=== PATIENT | female | born 1960 | race Hispanic/Latino ===

== ENCOUNTER 2017-09-23 17:29 | Inpatient (IN) | payer MEDICAID, OTHER ==
--- NOTE | 2017-09-23 18:48 | ED PDOC ---
Arrival/HPI - General Chief Complaint: Psychiatric Evaluation Time Seen by Provider: 09/23/17 18:13 Historian: Patient - History of Present Illness Narrative History of Present Illness (Text): 09/23/17 18:47 A 56 year old female presents to the emergency department for evaluation of suicidal ideation. Patient reports she ran out of her Seroquel medications, Psychiatrist won't refill prescriptions, and advised patient to come to the emergency department for psych evaluation. Patient denies hurting herself in the past. Denies any hallucinations, homicidal ideation. Patient denies any chest pain, shortness of breath, dysuria, abdominal pain or any other complaints at this time. Psychiatrist: Dr. Parsons Medications: Seroquel, Lorazepam Symptom Onset: Sudden Symptom Course: Unchanged Activities at Onset: Rest Context: Home Past Medical History - Provider Review Nursing Documentation Reviewed: Yes - Infectious Disease Hx of Infectious Diseases: None - Cardiac Hx Cardiac Disorders: Yes Hx Angina: No Hx Cardiac Arrhythmia: No Hx Circulatory Problems: No Hx Congestive Heart Failure: No Hx Heart Murmur: No Hx Heart Transplant: No Hx Hypertension: Yes Hx Internal Defibrillator: No Hx Mitral Valve Prolapse: No Hx Pacemaker: No Hx Peripheral Edema: No Hx Peripheral Vascular Disease: No - Pulmonary Hx Respiratory Disorders: No - Neurological Hx Neurological Disorder: No - HEENT Hx HEENT Disorder: No - Renal Hx Renal Disorder: No - Endocrine/Metabolic Hx Endocrine Disorders: No - Hematological/Oncological Hx Blood Disorders: No - Integumentary Hx Dermatological Disorder: No - Musculoskeletal/Rheumatological Hx Musculoskeletal Disorders: No Hx Falls: No - Gastrointestinal Hx Gastrointestinal Disorders: No - Genitourinary/Gynecological Hx Genitourinary Disorders: No Hx Reproductive Disorders: No - Psychiatric Hx Psychophysiologic Disorder: Yes Hx Anxiety: Yes Hx Bipolar Disorder: No Hx Depression: Yes Hx Emotional Abuse: No Hx Hallucinations: No Hx Panic Disorder: No Hx Post Traumatic Stress Disorder: No Hx Psychosis: No Hx Physical Abuse: No Hx Schizophrenia: No Hx Sexual Abuse: No Hx Substance Use: No - Surgical History Hx Amputation: No Hx Appendectomy: No Hx Cardiac Catheterization: No Hx Cholecystectomy: No Hx Coronary Stent: No Hx Gastric Bypass Surgery: No Hx Hysterectomy: No Hx Joint Replacement: No Hx Kidney Transplant: No Hx Liver Transplant: No Hx Mastectomy: No Hx Musculoskeletal Surgery: No Hx Open Heart Surgery: No Hx Orthopedic Surgery: No Hx Splenectomy: No Hx Valve Replacement: No Other/Comment: cervical spine tumor removal - Anesthesia Hx Anesthesia: Yes Hx Anesthesia Reactions: No Hx Malignant Hyperthermia: No - Suicidal Assessment Feels Threatened In Home Enviroment: No Family/Social History - Physician Review Nursing Documentation Reviewed: Yes Family/Social History: No Known Family HX Smoking Status: Heavy Smoker > 10 Cigarettes Daily Hx Alcohol Use: No Hx Substance Use: No Hx Substance Use Treatment: No Allergies/Home Meds Allergies/Adverse Reactions: Allergies No Known Allergies Allergy (Verified 10/12/13 04:48) Home Medications: Home Meds Medication Instructions Recorded Confirmed LORazepam [Ativan] 1 tab PO TID 09/23/17 09/23/17 QUEtiapine [SEROquel] 600 mg PO DAILY 09/23/17 09/23/17 Zaleplon [Sonata] 1 tab PO DAILY 09/23/17 09/23/17 Review of Systems - Physician Review All systems were reviewed & negative as marked: Yes - Review of Systems Respiratory: absent: SOB Cardiovascular: absent: Chest Pain Gastrointestinal: absent: Abdominal Pain Genitourinary Female: absent: Dysuria Psychiatric: Suicidal Ideation. absent: Other (hallucinations, homicidal ideation) Physical Exam Vital Signs Reviewed: Yes Vital Signs Temp Pulse Resp Pulse Ox 09/23/17 18:01 98.6 F 97 H 18 98 Temperature: Afebrile Blood Pressure: Normal Pulse: Regular Respiratory Rate: Normal Appearance: Positive for: Well-Appearing, Non-Toxic, Comfortable Pain Distress: None Mental Status: Positive for: Alert and Oriented X 3 - Systems Exam Head: Present: Atraumatic, Normocephalic Pupils: Present: PERRL Extroacular Muscles: Present: EOMI Conjunctiva: Present: Normal Mouth: Present: Moist Mucous Membranes Neck: Present: Normal Range of Motion Respiratory/Chest: Present: Clear to Auscultation, Good Air Exchange. No: Respiratory Distress, Accessory Muscle Use Cardiovascular: Present: Regular Rate and Rhythm, Normal S1, S2. No: Murmurs Abdomen: No: Tenderness, Distention, Peritoneal Signs Back: Present: Normal Inspection Upper Extremity: Present: Normal Inspection. No: Cyanosis, Edema Lower Extremity: Present: Normal Inspection. No: Edema Neurological: Present: GCS=15, CN II-XII Intact, Speech Normal Skin: Present: Warm, Dry, Normal Color. No: Rashes Psychiatric: Present: Alert, Oriented x 3, Normal Concentration, Anxious Medical Decision Making ED Course and Treatment: 09/23/17 18:45 Impression: A 56 year old female with suicidal ideation. Plan: -- EKG -- Chest X-ray -- labs -- Urinalysis -- Reassess and disposition Prior Visits: Notes and results from previous visits were reviewed. Patient was last seen in the emergency department on 10/12/13 for depression. Progress Notes: 09/23/17 19:04 Cxray negative. EKG shows NSR at 81bpm with RAD and non-specific ST changes. 09/23/17 20:46 Labs reviewed. Accepted by psych - Lab Interpretations Lab Results: 09/23/17 18:51 09/23/17 18:51 Lab Results 09/23/17 19:15: Urine Opiates Screen Negative, Urine Methadone Screen Negative, Ur Barbiturates Screen Negative, Ur Phencyclidine Scrn Negative, Ur Amphetamines Screen Negative, U Benzodiazepines Scrn Positive, U Oth Cocaine Metabols Negative, U Cannabinoids Screen Negative 09/23/17 19:14: Urine Color Yellow, Urine Appearance Sl cloudy, Urine pH 6.0, Ur Specific [place] >= 1.030, Urine Protein 30 H, Urine Glucose (UA) Negative, Urine Ketones Negative, Urine Blood Moderate H, Urine Nitrate Negative, Urine Bilirubin Negative, Urine Urobilinogen 0.2, Ur Leukocyte Esterase Negative, Urine RBC 15 - 20, Urine WBC 0 - 2, Ur Epithelial Cells 1 - 3, Urine Bacteria Trace, Hyaline Casts 0 - 2 09/23/17 18:51: Alcohol, Quantitative < 10 09/23/17 18:51: Salicylates < 1 L, Acetaminophen < 10.0 L 09/23/17 18:51: Sodium 144, Potassium 4.1, Chloride 106, Carbon Dioxide 26, Anion Gap 16, BUN 17, Creatinine 0.7, Est GFR ( Amer) > 60, Est GFR (Non- Af Amer) > 60, Random Glucose 104, Calcium 9.1, Magnesium 2.1, Total Bilirubin < 0.1 L, AST 21, ALT 17, Alkaline Phosphatase 70, Total Protein 6.9, Albumin 3.8 , Globulin 3.0, Albumin/Globulin Ratio 1.3 09/23/17 18:51: WBC 11.2 H, RBC 3.88, Hgb 13.1, Hct 37.8, MCV 97.4, MCH 33.8, MCHC 34.7, RDW 12.8, Plt Count 311, MPV 9.6, Gran % 76.0 H, Lymph % (Auto) 14.7 L, Lamb % (Auto) 8.7 H, Eos % (Auto) 0.4 L, Baso % (Auto) 0.2, Gran # 8.52 H, Lymph # (Auto) 1.7, Lamb # (Auto) 1.0 H, Eos # (Auto) 0.0, Baso # (Auto) 0.02 I have reviewed the lab results: Yes - RAD Interpretation Radiology Orders: 09/23/17 18:41 CHEST PORTABLE [RAD] Stat - EKG Interpretation Interpreted by ED Physician: Yes Type: 12 lead EKG - Medication Orders Current Medication Orders: Discontinued Medications Nicotine (Nicoderm Cq) 1 patch TD STAT STA Stop: 09/23/17 18:46 Last Admin: 09/23/17 19:03 Dose: 1 patch MAR Transdermal Patch Site Document 09/23/17 19:03 RENATE (Rec: 09/23/17 19:03 RENATE [id number]) Transdermal Patch Site Transdermal Patch Site Left Outer Upper Arm - Scribe Statement The provider has reviewed the documentation as recorded by the Azeem Holden Provider Scribe Attestation: All medical record entries made by the Scribe were at my direction and personally dictated by me. I have reviewed the chart and agree that the record accurately reflects my personal performance of the history, physical exam, medical decision making, and the department course for this patient. I have also personally directed, reviewed, and agree with the discharge instructions and disposition. Disposition/Present on Arrival - Present on Arrival Any Indicators Present on Arrival: No History of DVT/PE: No History of Uncontrolled Diabetes: No Urinary Catheter: No History of Decub. Ulcer: No History Surgical Site Infection Following: None - Disposition Have Diagnosis and Disposition been Completed?: Yes Diagnosis: Bipolar 1 disorder, Hematuria Disposition: HOSPITALIZED Disposition Time: 20:47 Patient Plan: Admission Condition: FAIR Forms: [employer] (Urdu)
[2017-09-23 19:02] LABS: BASO # 0.02 K/mm3 (0.0-2.0); BASO % 0.2 % (0.0-3.0); EOS % 0.4 % (1.5-5.0); GRAN # 8.52 (1.4-6.5); HEMOGLOBIN 13.1 g/dL (12.0-16.0); LYMPH # 1.7 (1.2-3.4); LYMPH % 14.7 % (22.0-35.0); MEAN CELL VOLUME 97.4 fl (80.0-105.0); MEAN CORPUSCULAR HEMOGLOBIN 33.8 pg (25.0-35.0); MEAN CORPUSCULAR HGB CONC 34.7 g/dl (31.0-37.0); MEAN PLATELET VOLUME 9.6 fl (7.0-11.0); MONO % 8.7 % (1.0-6.0); RBC 3.88 10^6/uL (3.5-6.1); RED CELL DISTRIBUTION WIDTH 12.8 % (11.5-14.5); WHITE BLOOD COUNT 11.2 10^3/ul (4.5-11.0)
[2017-09-23 19:13] LABS: ACETAMINOPHEN < 10.0 ug/ml (10.0-20.0); SALICYLATE < 1 mg/dL (2.0-20.0)
[2017-09-23 19:16] LABS: ALB/GLOB RATIO 1.3 (1.1-1.8); ALBUMIN 3.8 g/dL (3.0-4.8); ALT/SGPT 17 U/L (7-56); AST/SGOT 21 U/L (14-36); BLOOD UREA NITROGEN 17 mg/dL (7-21); CALCIUM 9.1 mg/dL (8.4-10.5); GFR NON-AFRICAN AMERICAN > 60
[2017-09-23 19:20] LABS: URINE BILIRUBIN NEGATIVE (NEGATIVE); URINE BLOOD MODERATE (NEGATIVE); URINE GLUCOSE (UA) NEGATIVE (NEGATIVE); URINE LEUKOCYTE ESTERASE NEGATIVE Leu/uL (NEGATIVE); URINE PROTEIN 30 mg/dL (<30 mg/dL); URINE UROBILINOGEN 0.2 E.U./dL (<1 E.U./dL)
[2017-09-23 19:27] LABS: URINE APPEARANCE SL CLOUDY (CLEAR); URINE COLOR YELLOW (YELLOW); URINE RBC 15 - 20 /hpf (0-2)
[2017-09-23 19:28] LABS: URINE BACTERIA TRACE (NEG); URINE HYALINE CAST 0 - 2 /hpf; URINE WBC 0 - 2 /hpf (0-6)
[2017-09-23 20:33] LABS: BARBITURATES, UR NEGATIVE (NEGATIVE); BENZODIAZEPINES, UR POSITIVE (NEGATIVE); OPIATES, UR NEGATIVE (NEGATIVE); PHENCYCLIDINE, UR NEGATIVE (NEGATIVE)
[2017-09-24] MEDS ORDERED: Magnesium Hydroxide Susp 30 ml UD PO PRN (00:30)
[2017-09-24 00:51] VITALS: BMI 21.4
[2017-09-24 00:58] VITALS: O2SAT 97
--- NOTE | 2017-09-24 02:20 | PCM.BM ---
Treatment Plan Problems - Problems identified on initial assessmt Anxiety Date Initiated: 09/23/17 Time Initiated: 22:15 Assessment reference: NA Status: Active Priority: 1
--- NOTE | 2017-09-24 02:29 | PCM.BM ---
<José Osman - Last Filed: 09/24/17 02:24> Treatment Plan Problems - Problems identified on initial assessmt Anxiety Date Initiated: 09/23/17 Time Initiated: 22:15 Assessment reference: NA Status: Active Priority: 1 Ineffective Coping Date Initiated: 09/23/17 Time Initiated: 22:15 Assessment reference: NA Status: Active Priority: 2 Ineffective Impulse Control Date Initiated: 09/23/17 Time Initiated: 22:15 Assessment reference: NA Status: Active Priority: 3 Altered Sleep Patterns Date Initiated: 09/23/17 Time Initiated: 22:15 Assessment reference: NA Status: Active Priority: 4 Treatment assets and liabiliti Patient Assests: cooperative, insightful, motivated, good support system, cognitively intact, good interpersonal skills Patient Liabilities: substance abuse, medical problems - Milieu Protocol Maintain good personal hygiene: daily Encourage regular showers, every shift Remind patient to perform daily oral care, every shift Assist patient to perform ADL's Maintain personal safety: every shift Educate patient to report safety concerns to staff, every shift Monitor environment for contraband/sharps Medication safety: Monitor for expected outcome, potential side effects: every shift, Assess barriers to learning: every shift, Assess readiness for medication education: every shift Family Contact - Goals for Treatment Patient goals for treatment: to stop taking lorazepam Discharge/Continuing Care - Education Needs Education Needs: Patient Medication, Patient Diagnosis/Disease Process, Patient Coping Skills, Patient Community resources, Patient Nutrition, Patient Health Practices/Safety, Patient Aftercare Safety Plan - Discharge Discharge Criteria: Tolerates medication w/o severe side effects, Normal sleep pattern <Shira Perdomo - Last Filed: 09/24/17 11:59> - Diagnosis (1) Mood disorder Status: Acute Interventions: 09/24/17 09:06 Psychoeducation Psychopharmacology/adjustment of medications as needed/ monitoring possible side effects Evaluate pt on daily basis Compliance with medications and follow up appointments Suicide and homicide risk assessment and prevention Relapse prevention Reduction of symptoms Improve functional status Family involvement As outpatient: cognitive behavioral therapy (2) Anxiolytic dependence Status: Acute Interventions: 09/24/17 09:06 Monitoring withdrawal symptoms Medical detoxification Pharmacotherapy for alcohol/benzos/opioid dependence Maintaining sobriety Relapse prevention Possible rehabilitation Motivational interviewing 12-step programs: AA meetings <Tod,Taryn - Last Filed: 09/25/17 12:39>
[2017-09-24 07:59] LABS: GLUCOSE,FASTING 98 mg/dL (65-110); HDL CHOLESTEROL 68 mg/dL (29-60)
[2017-09-24 08:11] LABS: LDL CHOLESTEROL 84 mg/dL (0-129)
--- NOTE | 2017-09-24 09:05 | RAD ---
HISTORY: psych COMPARISON: No prior. FINDINGS: LUNGS: No active pulmonary disease. PLEURA: No significant pleural effusion identified, no pneumothorax apparent. CARDIOVASCULAR: Normal. OSSEOUS STRUCTURES: No significant abnormalities. VISUALIZED UPPER ABDOMEN: Normal. OTHER FINDINGS: None. IMPRESSION: No acute cardiopulmonary disease appreciated.
--- NOTE | 2017-09-24 10:20 | CARD ---
APPROVED REPORT EKG Measurement Heart [id number] <Conclusion> Normal sinus rhythm Possible Left atrial enlargement Rightward axis Prolonged QTc
--- NOTE | 2017-09-24 11:58 | PCM.PSYCH ---
Initial Psychiatric Evaluation - Initial Psychiatric Evaluation Type of Admission: Voluntary Legal Status: Capacity (patient has capacity to sign consent for treatment) Chief Complaint (in patient's own words): "now I need to find another psychiatrist, will not take me back, I was misusing medications..." Patient's Reaction to Hospitalization: pt was admitted for evaluation of depressive symptoms, pt was misusing and abusing seroquel and benzos History of Present Illness and Precipitating Events: Shortly pt is a 56yo female with long h/o mental illness, one previous psych admission to this facility under 's service, pt was referred by psychiatrist Dr. Benson for evaluation of depressive symptoms, feeling of hopelessness and helplessness, pt was self medicating with the psychotropic meds, was misusing and abusing them, which led pt to this hospitalization, pt's psychiatrist will not take her back, pt's pharmacy refused to fill meds because of frequent losing meds. Pt required further evaluation and stabilization in psychiatric inpatient unit, pt failed outpatient setting, now is in danger to self. pt was seen in her room, pt presented to be older than her chronological age, poor hygiene, fair ADLs. pt refused to be evaluated in other room claiming that she does not feel well. pt reported she was on multiple SSRI but "I did not like the way it makes me feel", pt said that currently she is only on seroquel 1000mg daily and Ativan 2 mgs daytime 1mg HS and Sonata 10-20 mgs HS - Dr. Yates, pt said "I know that at times I am taking more, but I am depressed hopeless, helpless and cannot function, that is why I took more", pt was advised to take meds as prescribe, pt also was educated about dangerousness of such behavior, pt verbalized understanding. pt said at times she feels that she wants to be . Pt denied intent or plan to kill self or others. pt said at times she feels anxious, but denied h/o abuse, denied panic attacks. pt reported to have poor appetite and sleep. pt denied v/a/t hallucinations, denied paranoid ideation, but appeared oddly related. She reported difficulties grieving loss of sister a year ago. She reported feeling depressed taking care of her 88 y/o mother. Pt reported she lives w/ her mother. Medical h/o: pt reported being disabled due to a spinal surgery 12 years ago. 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 She denied any other medical issues/ medications. pt has difficulties to ambulate, said she cannot stand for long, will call for PT. Past psych h/o: pt reported past psych admission in 2013 to for depression. Pt denied substance use, however admitted to abusing her medications stating "I take more meds than I should at a time." pt smokes 1/2 pack a day, counseling provided, nicotine patch offered. Family h/o: pt denied family h/o mental illness. 09/23/17 18:51 09/23/17 18:51 Lab Results 09/24/17 07:00: TSH 3rd Generation 1.22 09/24/17 07:00: Fasting Glucose 98, Triglycerides 63, Cholesterol 175, LDL Cholesterol Direct 84, HDL Cholesterol 68 H 09/23/17 19:15: Urine Opiates Screen Negative, Urine Methadone Screen Negative, Ur Barbiturates Screen Negative, Ur Phencyclidine Scrn Negative, Ur Amphetamines Screen Negative, U Benzodiazepines Scrn Positive, U Oth Cocaine Metabols Negative, U Cannabinoids Screen Negative 09/23/17 19:14: Urine Color Yellow, Urine Appearance Sl cloudy, Urine pH 6.0, Ur Specific [place] >= 1.030, Urine Protein 30 H, Urine Glucose (UA) Negative, Urine Ketones Negative, Urine Blood Moderate H, Urine Nitrate Negative, Urine Bilirubin Negative, Urine Urobilinogen 0.2, Ur Leukocyte Esterase Negative, Urine RBC 15 - 20, Urine WBC 0 - 2, Ur Epithelial Cells 1 - 3, Urine Bacteria Trace, Hyaline Casts 0 - 2 09/23/17 18:51: Alcohol, Quantitative < 10 09/23/17 18:51: Salicylates < 1 L, Acetaminophen < 10.0 L 09/23/17 18:51: Sodium 144, Potassium 4.1, Chloride 106, Carbon Dioxide 26, Anion Gap 16, BUN 17, Creatinine 0.7, Est GFR ( Amer) > 60, Est GFR (Non- Af Amer) > 60, Random Glucose 104, Calcium 9.1, Magnesium 2.1, Total Bilirubin < 0.1 L, AST 21, ALT 17, Alkaline Phosphatase 70, Total Protein 6.9, Albumin 3.8 , Globulin 3.0, Albumin/Globulin Ratio 1.3 09/23/17 18:51: WBC 11.2 H, RBC 3.88, Hgb 13.1, Hct 37.8, MCV 97.4, MCH 33.8, MCHC 34.7, RDW 12.8, Plt Count 311, MPV 9.6, Gran % 76.0 H, Lymph % (Auto) 14.7 L, [place] % (Auto) 8.7 H, Eos % (Auto) 0.4 L, Baso % (Auto) 0.2, Gran # 8.52 H, Lymph # (Auto) 1.7, [place] # (Auto) 1.0 H, Eos # (Auto) 0.0, Baso # (Auto) 0.02 Vital Signs Temp Pulse Resp BP Pulse Ox 09/24/17 07:31 98.4 F 68 20 98/67 L 09/23/17 22:15 97.8 F 85 18 104/66 97 09/23/17 22:00 98.7 F 78 18 110/70 99 09/23/17 21:55 98.7 F 78 18 110/70 99 09/23/17 18:01 98.6 F 97 H 18 98 Current Medications: Active Medications Generic Name Dose Route Start Last Admin Trade Name Freq PRN Reason Stop Dose Admin Acetaminophen 650 mg 09/24/17 00:30 Tylenol 325mg Tab PO Q6H PRN Pain, moderate (4-7) Al Hydrox/Mg Hydrox/Simethicone 30 ml 09/24/17 00:30 Maalox Plus 30 Ml PO DAILY PRN Indigestion / Heartburn Lorazepam 2 mg 09/23/17 23:54 09/24/17 00:06 Ativan PO 2 mg AMHS KENDRICK Administration Protocol Magnesium Hydroxide 30 ml 09/24/17 00:30 Milk Of Magnesia PO DAILY PRN Constipation Quetiapine Fumarate 200 mg 09/23/17 23:45 09/24/17 00:07 Seroquel PO 200 mg HS KENDRICK Administration Protocol Quetiapine Fumarate 400 mg 09/24/17 08:00 Seroquel PO BID KENDRICK Protocol Zaleplon 10 mg 09/23/17 23:57 09/24/17 00:07 Sonata PO 10 mg HS PRN Administration Insomnia Past Psychiatric History - Past Psychiatric History Previous Treatment History: Inpatient Prior Professional Help: see HPI Prior Psychiatric Treatment: see HPI At what hospital: see HPI Duration: see HPI Nature of Treatment: see HPI Explanation of prior treatment: see HPI History of Abuse: see HPI History of ETOH/Drug Use: see HPI History of Family Illness: see HPI Pertinent Medical Hx (Current Medical&Sleep Prob, Allergies): Allergies Allergy/AdvReac Type Severity Reaction Status Date / Time No Known Allergies Allergy Verified 09/24/17 00:50 LORazepam [Ativan] 1 tab PO TID 09/23/17 QUEtiapine [SEROquel] 1,000 mg PO DAILY 09/23/17 RX: Zaleplon [Sonata] 1 tab PO DAILY 09/23/17 Review of Systems - Review of Systems Systems not reviewed;Unavailable: Acuity of Condition - EENT Eyes: As Per HPI Ears: As Per HPI Nose/Mouth/Throat: As Per HPI - Breasts Breasts: As Per HPI - Cardiovascular Cardiovascular: As Per HPI - Respiratory Respiratory: As Per HPI - Gastrointestinal Gastrointestinal: As Per HPI - Genitourinary Genitourinary: As Per HPI - Reproductive: Female Reproductive:Female: As Per HPI - Menstruation Menstruation: As Per HPI - Musculoskeletal Musculoskeletal: As Par HPI - Integumentary Integumentary: As Per HPI - Neurological Neurological: As Per HPI - Psychiatric Psychiatric: As Per HPI - Endocrine Endocrine: As Per HPI - Hematologic/Lymphatic Hematologic: As Per HPI Mental Status Examination - Personal Presentation Personal Presentation: Looks older than stated age - Affect Affect: Flat - Motor Activity Motor Activity: Psychomotor Retardation - Reliability in Providing Information Reliability in Providing Information: Fair - Speech Speech: Organized - Mood Mood: Depressed - Formal Thought Process Formal Thought Process: No Impairment, Other (but oddly related) - Obsessions/Compulsions Obsessions: None Compulsions: None - Cognitive Functions Orientation: Person, Place Sensorium: Alert Attention/Concentration: Easily distracted Abstract Thinking: [place] Estimate of Intelligence: Average Judgement: Intact, as evidence by: Insight regarding need for hospitalization - Risk Risk: Falls, Self-mutilation, Diminished functioning - Strength & Assets Inventory Strength & Assets Inventory: Family support, Cooperative - Limitations Limitations: Other (pt is misusing meds) DSM 5 DX - DSM 5 DSM 5 Diagnosis: r/o MDD r/o benzodiazepines abuse and misuse - Recommended/Plan of Treatment Treatment Recommendations and Plan of Treatment: Milieu/structure/supportive therapy Medical consult will be considered SW consultation for discharge plan and social issues Med management LORazepam will be continued, 2mg po bid for anxiety, possible change to klonopin QUEtiapine [SEROquel] 1,000 mg PO DAILY will be continued Sonata 10mg po hs for insomnia wellbutrin started 75mg po bid for depression Family involvement Follow up on labs Will monitor closely Pt was educated about risk/benefits and alternatives of medications, coping strategies (safety plan, suicide prevention), relapse prevention, importance of follow up with psychiatrist and therapist, stay away from drugs/alcohol/smoking Projected ELOS: 7days Prognosis: guarded Discharge Plan and Discharge Criteria: Pt will be not depressed or manic, will be more hopeful, will be not psychotic or anxious, will be not having thoughts of harming self or others, will be tolerating medications well, will not have major side effects, will be able to function, will not pose threat to self or others. - Smoking Cessation Smoking Cessation Initiated: Yes
[2017-09-24 16:34] LABS: RAPID PLASMA REAGIN REACTIVE (NONREACTIVE)
--- NOTE | 2017-09-25 12:05 | PCM.PYCHPN ---
Psychiatric Progress Note - Psychiatric Progress Note Patient seen today, length of contact: 25 min Patient Chief Complaint: "better but tired" Problems Identified/Issues Discussed: I reviewed admission assessment. Patient is a 56yo female with long h/ o mental illness, one previous psych admission to this facility under 's service who was was referred by her psychiatrist Dr. Yates for evaluation of anxiety and depressive symptoms, including feelings of hopelessness and helplessness in context of misusing and abusing her psychotropic medications. Of note: Dr. Yates will not take her back, pt's pharmacy refused to fill meds because of too many early refills/lost medications. I reviewed recent notes and patient was interviewed at bedside this morning. Grooming is unkempt and she is oriented to month, year, location and circumstances. Patient is generally very disengaged during my questioning. Her responses are relevant to questioning however they are cursory. Meaningful dialogue about her functioning could not be further attempted during treatment team meeting this morning because patient refused to attend despite requests by two different staff members. At bedside patient was able to report to me that she is "feeling better but tired". Patient denies any new side effects, discomfort or pain. She denied hallucinations or paranoid thoughts. Patient doesn't appear to be responding to internal stimuli and doesn't appear to be in any physical discomfort. She subjectively reports improvement in anxiety symptoms. Staff reports indicate that she still has periods of anxiety but generally has been calm and cooperative on the unit She is visible and socializes appropriately on the unit. There were no behavioral issues overnight. Diagnostic Results: r/o MDD r/o benzodiazepines abuse and misuse Mental Status Examination - Cognitive Function Orientation: Person, Place Attention: Poor Concentration: Poor - Mood Mood: Depressed (better but tired) - Affect Affect: Flat - Speech Speech: Soft - Formal Thought Process Formal Thought Process: No Impairment, Other (but oddly related) - Suicidal Ideation Suicidal Ideation: No - Homicidal Ideation Homicidal Ideation: No Goal/Treatment Plan - Goal/Treatment Plan Progress Toward Problem(s) and Goals/Treatment Plan: * c/w current tx and plan * No new labs today thus far * Vitals reviewed and noted below: Selected Entries 09/24/17 09/24/17 09/24/17 07:31 14:33 16:00 Temperature 98.4 F 97.5 F L Pulse Rate 68 83 Respiratory 20 Rate Blood Pressure 98/67 L 103/61
[2017-09-25] MEDS: Alum-Mag Hydrox-Simethicone Susp (30 mL) PO PRN (14:22)
--- NOTE | 2017-09-26 09:55 | PCM.PYCHPN ---
Psychiatric Progress Note - Psychiatric Progress Note Patient seen today, length of contact: 25 min Patient Chief Complaint: "better but tired" Problems Identified/Issues Discussed: I reviewed assessment. Patient is a 56yo female with long h/o mental illness, one previous psych admission to this facility under 's service who was was referred by her psychiatrist Dr. Yates for evaluation of anxiety and depressive symptoms, including feelings of hopelessness and helplessness in context of misusing and abusing her psychotropic medications. Of note: Dr. Yates will not take her back, pt's pharmacy refused to fill meds because of too many early refills/lost medications. I reviewed recent notes. Patient was interviewed in the quiet room this morning because her roommates loud behavior was disturbing her. As a result she didnt sleep well last night and she is tired today. Requests that Seroquel dosing be switched from 400/400/200 to 400/200/400. Patient is more alert and communicative today. Oriented x3. Affect is calm and constricted. She feels like she is improving on the unit. Indicates that her emotions and anxiety are in better control. Patient is tolerating her medications and denies any side effects. She denies any discomfort or pain except for chronic back pain related to spinal surgery she had in the past. Her responses remain relevant to questioning and she denies any hallucinations or paranoid thoughts. Patient doesnt appear to be responding to internal stimuli She is visible and socializes appropriately on the unit. Attending groups. There were no behavioral issues overnight. Diagnostic Results: r/o MDD r/o benzodiazepines abuse and misuse Mental Status Examination - Cognitive Function Orientation: Person, Place, Situation Attention: WNL Concentration: Poor - Mood Mood: Depressed (better but tired) - Affect Affect: Flat - Speech Speech: Soft - Formal Thought Process Formal Thought Process: No Impairment, Other (but oddly related) - Suicidal Ideation Suicidal Ideation: No - Homicidal Ideation Homicidal Ideation: No Goal/Treatment Plan - Goal/Treatment Plan Progress Toward Problem(s) and Goals/Treatment Plan: * c/w current tx and plan * Seroquel dosing schedule changed from 400/400/200 to 400/200/400 on 09/26/17 * No new labs today thus far * Vitals reviewed and noted below: Selected Entries 09/26/17 07:20 Temperature 98.1 F Pulse Rate 67 Respiratory 20 Rate Blood Pressure 110/71
--- NOTE | 2017-09-27 09:50 | PCM.PYCHPN ---
Psychiatric Progress Note - Psychiatric Progress Note Patient seen today, length of contact: 25 min Patient Chief Complaint: "better" Problems Identified/Issues Discussed: I have reviewed assessment. Patient is a 56 yo female with long h/o mental illness, one previous psych admission to this facility under ' s service who was was referred by her psychiatrist Dr. Yates for evaluation of anxiety and depressive symptoms, including feelings of hopelessness and helplessness in context of misusing and abusing her psychotropic medications. Of note: Dr. Yates will not take her back, pt's pharmacy refused to fill meds because of too many early refills/lost medications. I reviewed recent notes. Patient was interviewed at bedside this morning. She remains oriented x3 and superficially cooperative with questioning. Indicates that she slept a little better last night and is tolerating switch of Seroquel dosing from 400/400/200 to 400/200/400. Affect remains calm and constricted. She feels like she is improving on the unit. Indicates that her emotions and anxiety are in better control. Patient is tolerating her medications and denies any side effects. She denies any discomfort or pain except for chronic back pain related to spinal surgery she had in the past. Her responses remain relevant to questioning and she denies any hallucinations or paranoid thoughts. Patient doesn't appear to be responding to internal stimuli. She is visible and socializes appropriately on the unit. Attending and participating in groups. Per staff she can still be intrusive but easily redirectable. There were no behavioral issues over the weekend thus far. Diagnostic Results: r/o MDD r/o benzodiazepines abuse and misuse Mental Status Examination - Cognitive Function Orientation: Person, Place, Situation Attention: WNL Concentration: Poor - Mood Mood: Depressed (better ) - Affect Affect: Constricted - Speech Speech: Soft - Formal Thought Process Formal Thought Process: No Impairment, Other (but oddly related) - Suicidal Ideation Suicidal Ideation: No - Homicidal Ideation Homicidal Ideation: No Goal/Treatment Plan - Goal/Treatment Plan Progress Toward Problem(s) and Goals/Treatment Plan: * c/w current tx and plan * Seroquel dosing schedule changed from 400/400/200 to 400/200/400 on 09/26/17 to help patient with sleep * No new labs this weekend thus far * Vitals reviewed and noted below: 09/26/17 09/26/17 09/27/17 07:20 16:00 06:53 Temperature 98.1 F 97.6 F Pulse Rate 67 84 64 Respiratory 20 19 Rate Blood Pressure 110/71 99/59 L 100/67
--- NOTE | 2017-09-28 15:32 | PCM.PYCHPN ---
Psychiatric Progress Note - Psychiatric Progress Note Patient seen today, length of contact: 25 min Patient Chief Complaint: "I need to be weaned off from benzos" Problems Identified/Issues Discussed: Suicide/ homicide prevention, past psychiatric h/o, current psychiatric symptoms , medical problems, risk/benefits and alternatives of medications, medications compliance, coping strategies, substance abuse h/o, relapse prevention, importance of follow up with psychiatrist and therapist, discharge plan. Medical Problems: see HPI Diagnostic Results: 09/23/17 18:51 09/23/17 18:51 Lab Results 09/24/17 07:00: RPR Titer 1:2 H, RPR Reactive H 09/24/17 07:00: TSH 3rd Generation 1.22 09/24/17 07:00: Fasting Glucose 98, Triglycerides 63, Cholesterol 175, LDL Cholesterol Direct 84, HDL Cholesterol 68 H 09/23/17 19:15: Urine Opiates Screen Negative, Urine Methadone Screen Negative, Ur Barbiturates Screen Negative, Ur Phencyclidine Scrn Negative, Ur Amphetamines Screen Negative, U Benzodiazepines Scrn Positive, U Oth Cocaine Metabols Negative, U Cannabinoids Screen Negative 09/23/17 19:14: Urine Color Yellow, Urine Appearance Sl cloudy, Urine pH 6.0, Ur Specific [place] >= 1.030, Urine Protein 30 H, Urine Glucose (UA) Negative, Urine Ketones Negative, Urine Blood Moderate H, Urine Nitrate Negative, Urine Bilirubin Negative, Urine Urobilinogen 0.2, Ur Leukocyte Esterase Negative, Urine RBC 15 - 20, Urine WBC 0 - 2, Ur Epithelial Cells 1 - 3, Urine Bacteria Trace, Hyaline Casts 0 - 2 09/23/17 18:51: Alcohol, Quantitative < 10 09/23/17 18:51: Salicylates < 1 L, Acetaminophen < 10.0 L 09/23/17 18:51: Sodium 144, Potassium 4.1, Chloride 106, Carbon Dioxide 26, Anion Gap 16, BUN 17, Creatinine 0.7, Est GFR ( Amer) > 60, Est GFR (Non- Af Amer) > 60, Random Glucose 104, Calcium 9.1, Magnesium 2.1, Total Bilirubin < 0.1 L, AST 21, ALT 17, Alkaline Phosphatase 70, Total Protein 6.9, Albumin 3.8 , Globulin 3.0, Albumin/Globulin Ratio 1.3 09/23/17 18:51: WBC 11.2 H, RBC 3.88, Hgb 13.1, Hct 37.8, MCV 97.4, MCH 33.8, MCHC 34.7, RDW 12.8, Plt Count 311, MPV 9.6, Gran % 76.0 H, Lymph % (Auto) 14.7 L, [place] % (Auto) 8.7 H, Eos % (Auto) 0.4 L, Baso % (Auto) 0.2, Gran # 8.52 H, Lymph # (Auto) 1.7, [place] # (Auto) 1.0 H, Eos # (Auto) 0.0, Baso # (Auto) 0.02 Vital Signs Temp Pulse Resp BP Pulse Ox 09/27/17 16:00 92 H 94/60 L 09/27/17 06:53 97.6 F 64 19 100/67 09/26/17 16:00 92 H 94/60 L 09/26/17 07:20 98.1 F 67 20 110/71 09/25/17 16:00 94 H 96/58 L 09/24/17 16:00 83 103/61 09/24/17 14:33 97.5 F L 09/24/17 07:31 98.4 F 68 20 98/67 L 09/23/17 22:15 97.8 F 85 18 104/66 97 09/23/17 22:00 98.7 F 78 18 110/70 99 09/23/17 21:55 98.7 F 78 18 110/70 99 09/23/17 18:01 98.6 F 97 H 18 98 DSM 5 Symptoms Update: Shortly pt is a 56yo female with long h/o mental illness, one previous psych admission to this facility under 's service, pt was referred by psychiatrist Dr. Benson for evaluation of depressive symptoms, feeling of hopelessness and helplessness, pt was self medicating with the psychotropic meds, was misusing and abusing them, which led pt to this hospitalization, pt's psychiatrist will not take her back, pt's pharmacy refused to fill meds because of frequent losing meds. Pt required further evaluation and stabilization in psychiatric inpatient unit, pt failed outpatient setting, now is in danger to self. pt was seen at the treatment team meeting room, pt presented to be older than her chronological age, poor hygiene, fair ADLs. pt has some positive changes to compare to when this screenplay writer met pt for the first time. pt reported to be depressed "just to be here", denied thoughts of harming self or others. pt reported to be anxious. pt was able to participate in meeting, but at the same time appeared to be restless, pt said "It is me, I am always like that", pt was advised to decrease dose of seroquel, bt pt said "I know my body, I want to continue". pt said that she wants to be weaned off from benzos. pt reported to have improved appetite, sleep still poor. pt denied v/a/t hallucinations, denied paranoid ideation, but appeared oddly related. She reported difficulties grieving loss of sister a year ago. She reported feeling depressed taking care of her 88 y/o mother. so far pt tolerates meds well, no side effects observed of reported. AIMS 0, no EPS> Impression DSM 5 Diagnosis: r/o MDD r/o benzodiazepines abuse and misuse Medication Change: Yes (ativan decreased, vistaril and benadryl increased) Medical Record Reviewed: Yes Consults ordered or reviewed: pt was seen by medical team in ED Mental Status Examination - Cognitive Function Orientation: Person, Place, Situation Attention: WNL Concentration: Poor Association: WNL Fund of Knowledge: WNL - Mood Mood: Depressed (better ) - Affect Affect: Constricted - Speech Speech: Appropriate, Soft - Formal Thought Process Formal Thought Process: No Impairment, Other (but oddly related) - Suicidal Ideation Suicidal Ideation: No - Homicidal Ideation Homicidal Ideation: No Goal/Treatment Plan - Goal/Treatment Plan Need for Continued Stay: Remain at risks for inpatient hospitalization, Severe depression anxiety, Discharge may exacerbated symptoms, Severe functional impairment Progress Toward Problem(s) and Goals/Treatment Plan: Milieu/structure/supportive therapy Medical consult will be considered SW consultation for discharge plan and social issues Med management LORazepam will be continued, 1mg po tid for anxiety, with the plan to wean it off QUEtiapine [SEROquel] 1,000 mg PO DAILY will be continued [place] 10mg po hs for insomnia wellbutrin started 75mg po bid for depression benadryl 50mg po hs for insomnia vistaril 50mg qid scheduled Family involvement Follow up on labs Will monitor closely Pt was educated about risk/benefits and alternatives of medications, coping strategies (safety plan, suicide prevention), relapse prevention, importance of follow up with psychiatrist and therapist, stay away from drugs/alcohol/smoking Estimated Date of D/C: 09/30/17
[2017-09-29] MEDS: buPROPion 150 mg/24 Hours XL Tab PO SCH (09:29)
--- NOTE | 2017-09-29 10:40 | PCM.PYCHPN ---
Psychiatric Progress Note - Psychiatric Progress Note Patient seen today, length of contact: 30min Patient Chief Complaint: "I feel better, I want to stay away from benzos" Problems Identified/Issues Discussed: Suicide/ homicide prevention, past psychiatric h/o, current psychiatric symptoms , medical problems, risk/benefits and alternatives of medications, medications compliance, coping strategies, substance abuse h/o, relapse prevention, importance of follow up with psychiatrist and therapist, discharge plan. Medical Problems: see HPI Diagnostic Results: 09/23/17 18:51 09/23/17 18:51 Lab Results 09/24/17 07:00: RPR Titer 1:2 H, RPR Reactive H 09/24/17 07:00: TSH 3rd Generation 1.22 09/24/17 07:00: Fasting Glucose 98, Triglycerides 63, Cholesterol 175, LDL Cholesterol Direct 84, HDL Cholesterol 68 H 09/23/17 19:15: Urine Opiates Screen Negative, Urine Methadone Screen Negative, Ur Barbiturates Screen Negative, Ur Phencyclidine Scrn Negative, Ur Amphetamines Screen Negative, U Benzodiazepines Scrn Positive, U Oth Cocaine Metabols Negative, U Cannabinoids Screen Negative 09/23/17 19:14: Urine Color Yellow, Urine Appearance Sl cloudy, Urine pH 6.0, Ur Specific [place] >= 1.030, Urine Protein 30 H, Urine Glucose (UA) Negative, Urine Ketones Negative, Urine Blood Moderate H, Urine Nitrate Negative, Urine Bilirubin Negative, Urine Urobilinogen 0.2, Ur Leukocyte Esterase Negative, Urine RBC 15 - 20, Urine WBC 0 - 2, Ur Epithelial Cells 1 - 3, Urine Bacteria Trace, Hyaline Casts 0 - 2 09/23/17 18:51: Alcohol, Quantitative < 10 09/23/17 18:51: Salicylates < 1 L, Acetaminophen < 10.0 L 09/23/17 18:51: Sodium 144, Potassium 4.1, Chloride 106, Carbon Dioxide 26, Anion Gap 16, BUN 17, Creatinine 0.7, Est GFR ( Amer) > 60, Est GFR (Non- Af Amer) > 60, Random Glucose 104, Calcium 9.1, Magnesium 2.1, Total Bilirubin < 0.1 L, AST 21, ALT 17, Alkaline Phosphatase 70, Total Protein 6.9, Albumin 3.8 , Globulin 3.0, Albumin/Globulin Ratio 1.3 09/23/17 18:51: WBC 11.2 H, RBC 3.88, Hgb 13.1, Hct 37.8, MCV 97.4, MCH 33.8, MCHC 34.7, RDW 12.8, Plt Count 311, MPV 9.6, Gran % 76.0 H, Lymph % (Auto) 14.7 L, [place] % (Auto) 8.7 H, Eos % (Auto) 0.4 L, Baso % (Auto) 0.2, Gran # 8.52 H, Lymph # (Auto) 1.7, [place] # (Auto) 1.0 H, Eos # (Auto) 0.0, Baso # (Auto) 0.02 Vital Signs Temp Pulse Resp BP Pulse Ox 09/27/17 16:00 92 H 94/60 L 09/27/17 06:53 97.6 F 64 19 100/67 09/26/17 16:00 92 H 94/60 L 09/26/17 07:20 98.1 F 67 20 110/71 09/25/17 16:00 94 H 96/58 L 09/24/17 16:00 83 103/61 09/24/17 14:33 97.5 F L 09/24/17 07:31 98.4 F 68 20 98/67 L 09/23/17 22:15 97.8 F 85 18 104/66 97 09/23/17 22:00 98.7 F 78 18 110/70 99 09/23/17 21:55 98.7 F 78 18 110/70 99 09/23/17 18:01 98.6 F 97 H 18 98 DSM 5 Symptoms Update: Shortly pt is a 56yo female with long h/o mental illness, one previous psych admission to this facility under 's service, pt was referred by psychiatrist Dr. Benson for evaluation of depressive symptoms, feeling of hopelessness and helplessness, pt was self medicating with the psychotropic meds, was misusing and abusing them, which led pt to this hospitalization, pt's psychiatrist will not take her back, pt's pharmacy refused to fill meds because of frequent losing meds. Pt required further evaluation and stabilization in psychiatric inpatient unit, pt failed outpatient setting, now is in danger to self. pt was seen next to the nursing station, pt presented well rested, wash her hair , with much improved personal hygiene, fair ADLs. pt has some positive changes to compare to when this sports writer met pt for the first time. pt reported to be less depressed, pt tolerated decrease dose of Ativan well, no signs of withdrawals. pt reported future oriented plans "to stay away from benzos and "take care of my mother, she is waiting for me to come back home"denied v/a/t hallucinations, denied paranoid ideation, well related to this sports writer. pt reported to have improved appetite, sleep with some improvement. so far pt tolerates meds well, no side effects observed of reported. AIMS 0, no EPS> Impression DSM 5 Diagnosis: r/o MDD r/o benzodiazepines abuse and misuse Medication Change: Yes (ativan decreased) Medical Record Reviewed: Yes Consults ordered or reviewed: pt was seen by medical team in ED Mental Status Examination - Cognitive Function Orientation: Person, Place, Situation Attention: WNL Concentration: Poor (improved) Association: WNL Fund of Knowledge: WNL - Mood Mood: Depressed ("I feel better") - Affect Affect: Constricted (but more reactive, mood congruent) - Speech Speech: Appropriate, Soft - Formal Thought Process Formal Thought Process: No Impairment, Other (but oddly related) - Suicidal Ideation Suicidal Ideation: No - Homicidal Ideation Homicidal Ideation: No Goal/Treatment Plan - Goal/Treatment Plan Need for Continued Stay: Remain at risks for inpatient hospitalization, Severe depression anxiety, Discharge may exacerbated symptoms, Severe functional impairment Progress Toward Problem(s) and Goals/Treatment Plan: Milieu/structure/supportive therapy Medical consult will be considered SW consultation for discharge plan and social issues Med management LORazepam will be continued, 1mg po bid for anxiety, with the plan to wean it off QUEtiapine [SEROquel] 1,000 mg PO DAILY will be continued [place] 10mg po hs for insomnia wellbutrin started 75mg po bid for depression benadryl 50mg po hs for insomnia vistaril 50mg qid scheduled Family involvement Follow up on labs Will monitor closely Pt was educated about risk/benefits and alternatives of medications, coping strategies (safety plan, suicide prevention), relapse prevention, importance of follow up with psychiatrist and therapist, stay away from drugs/alcohol/smoking Estimated Date of D/C: 09/30/17
[2017-09-29] MEDS: Alum-Mag Hydrox-Simethicone Susp (30 mL) PO PRN (14:55)
[2017-09-30 07:11] VITALS: BP 97/64; PULSE 65; RESP 18; TEMP 97.8
[2017-09-30] MEDS: buPROPion 150 mg/24 Hours XL Tab PO SCH (09:14)
--- NOTE | 2017-09-30 15:40 | PCM.PYCHDC ---
Mental Status Examination - Mental Status Examination Orientation: Person, Place, Situation, Time Memory: Intact Mood: Neutral Affect: Constricted (but reactive and mood-congruent) Speech: Appropriate Attention: WNL Concentration: WNL Association: WNL Fund of Knowledge: WNL Formal Thought Process: No Impairment Description of patient's judgement and insight: Pt has improved insight into mental and medical illness, pt was compliant with medications and unit rules and regulations, pt was going to groups, was calm, cooperative, socially appropriate, no behavioral incidents, no agitation, no aggression. Psychotic Thoughts and Behaviors: Pt denied v/a/t hallucinations, denied paranoid ideations, pt does not appear to be psychotic, and thought process is goal directed. Suicidal Ideation: No Current Homicidal Ideation?: No Plan: pt adamantly denied thoughts of harming self or others denied intent or plan. Discharge Summary - Discharge Note Reason for Hospitalization: pt was admitted for evaluation of depressive symptoms, pt was misusing and abusing seroquel and benzos Psychiatric History (includes Medical, Family, Personal Hx): see HPI Laboratory Data: 09/23/17 18:51 09/23/17 18:51 Lab Results 09/24/17 07:00: T.pallidum Ab (FTA-ABS) Nonreactive 09/24/17 07:00: RPR Titer 1:2 H, RPR Reactive H 09/24/17 07:00: TSH 3rd Generation 1.22 09/24/17 07:00: Fasting Glucose 98, Triglycerides 63, Cholesterol 175, LDL Cholesterol Direct 84, HDL Cholesterol 68 H 09/23/17 19:15: Urine Opiates Screen Negative, Urine Methadone Screen Negative, Ur Barbiturates Screen Negative, Ur Phencyclidine Scrn Negative, Ur Amphetamines Screen Negative, U Benzodiazepines Scrn Positive, U Oth Cocaine Metabols Negative, U Cannabinoids Screen Negative 09/23/17 19:14: Urine Color Yellow, Urine Appearance Sl cloudy, Urine pH 6.0, Ur Specific [place] >= 1.030, Urine Protein 30 H, Urine Glucose (UA) Negative, Urine Ketones Negative, Urine Blood Moderate H, Urine Nitrate Negative, Urine Bilirubin Negative, Urine Urobilinogen 0.2, Ur Leukocyte Esterase Negative, Urine RBC 15 - 20, Urine WBC 0 - 2, Ur Epithelial Cells 1 - 3, Urine Bacteria Trace, Hyaline Casts 0 - 2 09/23/17 18:51: Alcohol, Quantitative < 10 09/23/17 18:51: Salicylates < 1 L, Acetaminophen < 10.0 L 09/23/17 18:51: Sodium 144, Potassium 4.1, Chloride 106, Carbon Dioxide 26, Anion Gap 16, BUN 17, Creatinine 0.7, Est GFR ( Amer) > 60, Est GFR (Non- Af Amer) > 60, Random Glucose 104, Calcium 9.1, Magnesium 2.1, Total Bilirubin < 0.1 L, AST 21, ALT 17, Alkaline Phosphatase 70, Total Protein 6.9, Albumin 3.8 , Globulin 3.0, Albumin/Globulin Ratio 1.3 09/23/17 18:51: WBC 11.2 H, RBC 3.88, Hgb 13.1, Hct 37.8, MCV 97.4, MCH 33.8, MCHC 34.7, RDW 12.8, Plt Count 311, MPV 9.6, Gran % 76.0 H, Lymph % (Auto) 14.7 L, [place] % (Auto) 8.7 H, Eos % (Auto) 0.4 L, Baso % (Auto) 0.2, Gran # 8.52 H, Lymph # (Auto) 1.7, [place] # (Auto) 1.0 H, Eos # (Auto) 0.0, Baso # (Auto) 0.02 Vital Signs Temp Pulse Resp BP Pulse Ox 09/30/17 06:00 97.8 F 65 18 97/64 L 09/29/17 16:00 82 104/64 09/29/17 07:31 98.1 F 74 20 107/72 09/27/17 16:00 92 H 94/60 L 09/27/17 06:53 97.6 F 64 19 100/67 09/26/17 16:00 92 H 94/60 L 09/26/17 07:20 98.1 F 67 20 110/71 09/25/17 16:00 94 H 96/58 L 09/24/17 16:00 83 103/61 09/24/17 14:33 97.5 F L 09/24/17 07:31 98.4 F 68 20 98/67 L 09/23/17 22:15 97.8 F 85 18 104/66 97 09/23/17 22:00 98.7 F 78 18 110/70 99 09/23/17 21:55 98.7 F 78 18 110/70 99 09/23/17 18:01 98.6 F 97 H 18 98 Consultations:: List each consultation separately and include: 1. Reason for request. 2. Findings. 3. Follow-up Consultations: pt was seen by medical team in ED Summary of Hospital Course include:: 1. Description of specific treatment plan utilized for patients during their course of treatmen. 2. Summarize the time- course for resolution of acute symptoms and/or regressed behaviors. 3. Describe issues identified and worked on during hospitalization. 4. Describe medication utilized. 5. Describe medical problems identified and treated. 6. Reassessment of suicide risk Summary of Hospital Course: Shortly pt is a 56yo female with long h/o mental illness, one previous psych admission to this facility under 's service, pt was referred by psychiatrist Dr. Benson for evaluation of depressive symptoms, feeling of hopelessness and helplessness, pt was self medicating with the psychotropic meds, was misusing and abusing them, which led pt to this hospitalization, pt's psychiatrist will not take her back, pt's pharmacy refused to fill meds because of frequent losing meds. Pt required further evaluation and stabilization in psychiatric inpatient unit, pt failed outpatient setting. Initially pt was seen in her room, pt presented to be older than her chronological age, poor hygiene, fair ADLs. pt refused to be evaluated in other room claiming that she does not feel well. pt reported she was on multiple SSRI but "I did not like the way it makes me feel", pt said that currently she is only on seroquel 1000mg daily and Ativan 2 mgs daytime 1mg HS and Sonata 10-20 mgs HS - Dr. Yates, pt said "I know that at times I am taking more, but I am depressed hopeless, helpless and cannot function, that is why I took more", pt was advised to take meds as prescribe, pt also was educated about dangerousness of such behavior, pt verbalized understanding. pt said at times she feels that she wants to be . Pt denied intent or plan to kill self or others. pt said at times she feels anxious, but denied h/o abuse, denied panic attacks. pt reported to have poor appetite and sleep. pt denied v/a/t hallucinations, denied paranoid ideation, but appeared oddly related. She reported difficulties grieving loss of sister a year ago. She reported feeling depressed taking care of her 88 y/o mother. Pt reported she lives w/ her mother. Medical h/o: pt reported being disabled due to a spinal surgery 12 years ago. 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 She denied any other medical issues/ medications. pt has difficulties to ambulate, said she cannot stand for long, will call for PT. Past psych h/o: pt reported past psych admission in 2013 to for depression. Pt denied substance use, however admitted to abusing her medications stating "I take more meds than I should at a time." pt smokes 1/2 pack a day, counseling provided, nicotine patch offered. Family h/o: pt denied family h/o mental illness. 09/23/17 18:51 09/23/17 18:51 Lab Results 09/24/17 07:00: TSH 3rd Generation 1.22 09/24/17 07:00: Fasting Glucose 98, Triglycerides 63, Cholesterol 175, LDL Cholesterol Direct 84, HDL Cholesterol 68 H 09/23/17 19:15: Urine Opiates Screen Negative, Urine Methadone Screen Negative, Ur Barbiturates Screen Negative, Ur Phencyclidine Scrn Negative, Ur Amphetamines Screen Negative, U Benzodiazepines Scrn Positive, U Oth Cocaine Metabols Negative, U Cannabinoids Screen Negative 09/23/17 19:14: Urine Color Yellow, Urine Appearance Sl cloudy, Urine pH 6.0, Ur Specific [place] >= 1.030, Urine Protein 30 H, Urine Glucose (UA) Negative, Urine Ketones Negative, Urine Blood Moderate H, Urine Nitrate Negative, Urine Bilirubin Negative, Urine Urobilinogen 0.2, Ur Leukocyte Esterase Negative, Urine RBC 15 - 20, Urine WBC 0 - 2, Ur Epithelial Cells 1 - 3, Urine Bacteria Trace, Hyaline Casts 0 - 2 09/23/17 18:51: Alcohol, Quantitative < 10 09/23/17 18:51: Salicylates < 1 L, Acetaminophen < 10.0 L 09/23/17 18:51: Sodium 144, Potassium 4.1, Chloride 106, Carbon Dioxide 26, Anion Gap 16, BUN 17, Creatinine 0.7, Est GFR ( Amer) > 60, Est GFR (Non- Af Amer) > 60, Random Glucose 104, Calcium 9.1, Magnesium 2.1, Total Bilirubin < 0.1 L, AST 21, ALT 17, Alkaline Phosphatase 70, Total Protein 6.9, Albumin 3.8 , Globulin 3.0, Albumin/Globulin Ratio 1.3 09/23/17 18:51: WBC 11.2 H, RBC 3.88, Hgb 13.1, Hct 37.8, MCV 97.4, MCH 33.8, MCHC 34.7, RDW 12.8, Plt Count 311, MPV 9.6, Gran % 76.0 H, Lymph % (Auto) 14.7 L, [place] % (Auto) 8.7 H, Eos % (Auto) 0.4 L, Baso % (Auto) 0.2, Gran # 8.52 H, Lymph # (Auto) 1.7, [place] # (Auto) 1.0 H, Eos # (Auto) 0.0, Baso # (Auto) 0.02 Vital Signs Temp Pulse Resp BP Pulse Ox 09/24/17 07:31 98.4 F 68 20 98/67 L 09/23/17 22:15 97.8 F 85 18 104/66 97 09/23/17 22:00 98.7 F 78 18 110/70 99 09/23/17 21:55 98.7 F 78 18 110/70 99 09/23/17 18:01 98.6 F 97 H 18 98 pt was weaned off from ativan, successfully, no withdrawal symptoms. pt was stabilized on the following meds: QUEtiapine [SEROquel] 1,000 mg PO DAILY will be continued Sonata 10mg po hs for insomnia wellbutrin started 75mg po bid for depression benadryl 50mg po hs for insomnia vistaril 50mg qid scheduled neurontin 300mg po bid Patient tolerated the medications well go no side effects observed or reported, AIMS 0, no EPS. Over the course of this hospitalization pt was attending groups, pt also had medication management, had therapeutic milieu. Overall pt improved significantly, pt's affect became brighter, pt was less depressed, has realistic future oriented plans, pt also does not appear to be psychotic, or anxious, pt was socially appropriate, no behavioral issues, pts insight improved as well and soon pt deemed to be ready for discharge. At the time of the discharge pt denied been depressed, denied thoughts of harming self or others, denied psychotic symptoms, and pt does not appeared to be psychotic, denied been anxious, pt is not in imminent danger to self or others, will be following up at [facility] on October 27, 2017 at 10: 45am, information about follow up appointment, time and address provided to the pt, it is patient responsibility to follow up with outpatient clinic, PMD as well as specialists (see SW note for more detailed information). In case pt will need to obtain results of studies pending at discharge pt was provided with contact information of Psychiatric Inpatient unit [phone] as well as Medical Record Department [phone]. Nicotine patch was offered Counseling about smoking cessation provided pt does not meet a criteria for naltrexone treatment or pt was provided with prescriptions for all of medications (please see medication reconciliation form) Pt was educated about safety plan in case of worsening of symptoms or in case of suicidal or homicidal ideation call 911 or go to the nearest ER, also was educated to take meds as prescribed and stay away from drugs, pt verbalized understanding. - Diagnosis (1) Mood disorder Current Visit: Yes Status: Acute Priority: High (2) Anxiolytic dependence Current Visit: Yes Status: Chronic Priority: Medium - Final Diagnosis (DSM 5) Condition upon Discharge: IMPROVED Disposition: HOME/ ROUTINE Follow-up Treatment Plan: At the time of the discharge pt denied been depressed, denied thoughts of harming self or others, denied psychotic symptoms, and pt does not appeared to be psychotic, denied been anxious, pt is not in imminent danger to self or others, will be following up at [facility] on October 27, 2017 at 10: 45am, information about follow up appointment, time and address provided to the pt, it is patient responsibility to follow up with outpatient clinic, PMD as well as specialists (see SW note for more detailed information). In case pt will need to obtain results of studies pending at discharge pt was provided with contact information of Psychiatric Inpatient unit [phone] as well as Medical Record Department [phone]. Nicotine patch was offered Counseling about smoking cessation provided pt does not meet a criteria for naltrexone treatment or pt was provided with prescriptions for all of medications (please see medication reconciliation form) Pt was educated about safety plan in case of worsening of symptoms or in case of suicidal or homicidal ideation call 911 or go to the nearest ER, also was educated to take meds as prescribed and stay away from drugs, pt verbalized understanding. Prescriptions/Medication Reconciliation: buPROPion XL [Wellbutrin XL] 150 mg PO DAILY #14 t24 Gabapentin [Neurontin] 300 mg PO TID #45 cap hydrOXYzine Pamoate [Vistaril] 50 mg PO TID #45 cap Ibuprofen [Motrin Tab] 600 mg PO TID #45 tab Nicotine 14 mg/24 hr [Nicoderm CQ] 1 patch TD DAILY #14 patch Quetiapine Fumarate [Seroquel] 200 mg PO 1600 #14 tablet Quetiapine Fumarate [Seroquel] 400 mg PO AMHS #14 tablet Zaleplon [Sonata] 10 mg PO HS PRN #14 cap PRN Reason: Insomnia - Smoking Cessation Smoking Cessation Medication prescribed: Yes - Antipsychotic Medications Pt discharged on 2 or more routine antipsychotic medications: No
== END 2017-09-30 16:30 | disposition home or self-care (01) | DRG 430 ==
LOC: ED 17:29 → ERH 21:21 → PSYC 22:07
PROVIDERS: ADMIT Psychiatry & Neurology Psychiatry; ATTEND Psychiatry & Neurology Psychiatry
PROC: GZ3ZZZZ Medication Management (ICD-10-PCS; principal; 2017-09-24)
DX: F39 Unspecified mood [affective] disorder (principal); F13.20 Sedative, hypnotic or anxiolytic dependence, uncomplicated; F41.9 Anxiety disorder, unspecified; G47.00 Insomnia, unspecified; F17.210 Nicotine dependence, cigarettes, uncomplicated